=== PATIENT | female | born 1960 | race Caucasian/White ===

== ENCOUNTER 2020-05-06 22:01 | Inpatient (IN) | payer MEDICARE, MEDICAID ==
[~2020-05-06] VITALS: Ht 160 cm; Wt 108.0 kg
[~2020-05-06 22:01] MED LIST: HYDR-2595; IBU800T
[2020-05-06] MEDS ORDERED: CEFTRIAXONE SODIUM 2 GM in D5W 5% 50 ML IV ONE (23:30)
[2020-05-06] MEDS ORDERED: ALBUTEROL SULF 2.5 MG/0.5ML(0.5%) NEB SOLN NEB PRN (23:30)
[2020-05-06] MEDS ORDERED: MORPHINE SULFATE INJECTION 2 MG/ML SYRG IV PRN (23:30)
[2020-05-06] MEDS ORDERED: NITROGLYCERIN 0.4 MG SL TAB SL PRN ×2 (23:30)
[2020-05-07 00:10] LABS: Basophils # (auto) 0.1 10 ^3/uL (0-0.2); Basophils % (auto) 0.8 % (0.0-2.0); Eosinophils # (auto) 0.3 10 ^3/uL (0-0.8); Eosinophils % (auto) 3.6 % (0.0-7.0); Hematocrit 43.3 % (36.0-46.0); Hemoglobin 14.7 g/dL (12.2-16.2); Lymphocytes # (auto) 2.3 10 ^3/uL (0.4-5.4); Mean Corpuscular Hemoglobin 31.7 pg (28.0-32.0); Mean Corpuscular Volume 93.1 fL (80.0-100.0); Monocytes # (auto) 0.7 10 ^3/uL (0-1.3); Monocytes % (auto) 7.9 % (0.0-12.0); Neutrophils # (auto) 5.4 10 ^3/uL (1.6-8.6); Neutrophils % (auto) 61.7 % (37.0-80.0); Nucleated Red Blood Cells % 0.1 %; Red Blood Cells 4.65 10^6/uL (4.0-5.20); Red Cell Distribution Width 14.1 % (11.8-14.3); White Blood Cell 8.8 10^3/uL (4.4-10.8)
[2020-05-07] MEDS ORDERED: cefTRIAXone SOD 1,000 MG VL ONE (00:17)
[2020-05-07 00:27] LABS: Calcium 9.2 mg/dL (8.5-10.1)
[2020-05-07 01:03] LABS: INR 0.9 (0.9-1.15); Partial Thromboplastin Time 24.5 sec (23.0-31.2)
[2020-05-07] MEDS ORDERED: CLINDAMYCIN 900MG IV 50 ML IV ONE (02:00)
[2020-05-07] MEDS: MORPHINE SULFATE INJECTION 2 MG/ML SYRG IV PRN ×2 (02:26→03:10)
[2020-05-07 07:13] LABS: Basophils # (auto) 0.1 10 ^3/uL (0-0.2); Basophils % (auto) 0.8 % (0.0-2.0); Eosinophils # (auto) 0.2 10 ^3/uL (0-0.8); Eosinophils % (auto) 2.8 % (0.0-7.0); Hematocrit 43.1 % (36.0-46.0); Hemoglobin 14.8 g/dL (12.2-16.2); Lymphocytes # (auto) 2.2 10 ^3/uL (0.4-5.4); Lymphocytes % (auto) 28.1 % (10.0-50.0); Mean Corpuscular Hemoglobin 31.8 pg (28.0-32.0); Mean Corpuscular Hgb Conc. 34.3 g/dL (32.0-36.0); Mean Corpuscular Volume 92.8 fL (80.0-100.0); Monocytes # (auto) 0.6 10 ^3/uL (0-1.3); Monocytes % (auto) 7.6 % (0.0-12.0); Neutrophils # (auto) 4.7 10 ^3/uL (1.6-8.6); Neutrophils % (auto) 60.7 % (37.0-80.0); Nucleated Red Blood Cells % 0.1 %; Red Blood Cells 4.65 10^6/uL (4.0-5.20); Red Cell Distribution Width 13.8 % (11.8-14.3); White Blood Cell 7.7 10^3/uL (4.4-10.8)
[2020-05-07 07:30] LABS: Potassium 4.1 mmol/L (3.5-5.1)
[2020-05-07 07:43] LABS: Albumin 3.6 g/dL (3.4-5.0); BUN/Creatinine Ratio 23.5; Bilirubin, Total 0.4 mg/dL (0.2-1.0)
[2020-05-07] MEDS ORDERED: IOHEXOL 350 MG/ML 100ML IJ ONE (08:17)
[2020-05-07] MEDS ORDERED: FUROSEMIDE 20 MG/2 ML VIAL IV ONE (09:00)
[2020-05-07 09:15] VITALS: BP 111/72
[2020-05-07] MEDS: KETOROLAC TROMETH 30 MG/ML 1ML VIAL IV SCH ×2 (09:23→16:15)
[2020-05-07] MEDS: ENOXAPARIN SOD 40 MG/0.4 ML SYRINGE SC SCH ×2 (09:23)
[2020-05-07] MEDS: cefTRIAXone 1GM/50ML D5W 50 ML IV SCH (09:23)
[2020-05-07] MEDS ORDERED: PANTOPRAZOLE 40 MG TAB PO SCH (10:00)
[2020-05-07] MEDS ORDERED: HYDROmorphone HCL 2 MG/ML VL IV PRN (20:00)
[2020-05-07] MEDS: PANTOPRAZOLE 40 MG TAB PO SCH (20:34)
[2020-05-07] MEDS: HYDROmorphone HCL 2 MG/ML VL IV PRN (20:36)
[2020-05-07 22:06] VITALS: BP 103/57
[2020-05-08] MEDS: HYDROmorphone HCL 2 MG/ML VL IV PRN ×2 (02:21→08:43)
[2020-05-08 04:47] VITALS: BP 113/63
[2020-05-08 08:00] VITALS: BP 103/63
[2020-05-08] MEDS ORDERED: LIDOCAINE VISCOUS 2% 15ML UD ONE (08:42)
[2020-05-08] MEDS ORDERED: diphenhdrAMINE HCL 50 MG/1 ML VL ONE (08:42)
[2020-05-08] MEDS ORDERED: SODIUM CHLORIDE LOCK 10 ML ONE (08:42)
[2020-05-08] MEDS ORDERED: fentaNYL CITRATE 100 MCG/2 ML VL ONE (08:43)
[2020-05-08 09:00] VITALS: BP 103/63
[2020-05-08] MEDS: PANTOPRAZOLE 40 MG TAB PO SCH (09:03)
[2020-05-08] MEDS: ENOXAPARIN SOD 40 MG/0.4 ML SYRINGE SC SCH (09:05)
[2020-05-08] MEDS: MIDAZOLAM HCL 5 MG/ML-1ML VIAL ONE ×2 (09:08→09:11)
[2020-05-08] MEDS: cefTRIAXone 1GM/50ML D5W 50 ML IV SCH (10:28)
[2020-05-08 13:00] VITALS: BP 139/66
[2020-05-08] MEDS ORDERED: LORazepam 2MG/ML-1ML VIAL IV ONE (14:45)
== END 2020-05-08 16:15 | disposition left against medical advice (07) | DRG 89 ==
LOC: ER 22:03 → TELE 22:04 → TELE-E-ADS 05-07 14:33 → TELE-WESTW 05-08 14:51
PROVIDERS: ADMIT Specialist; ATTEND Specialist
PROC: 0DB68ZX Excision of Stomach, Via Natural or Artificial Opening Endoscopic, Diagnostic (ICD-10-PCS; principal; 2020-05-08 09:08)
DX: S06.0X0A Concussion without loss of consciousness, initial encounter (principal); J44.1 Chronic obstructive pulmonary disease with (acute) exacerbation; K92.1 Melena; L03.116 Cellulitis of left lower limb; L03.115 Cellulitis of right lower limb; E66.2 Morbid (severe) obesity with alveolar hypoventilation; J45.901 Unspecified asthma with (acute) exacerbation; Z68.41 Body mass index [BMI] 40.0-44.9, adult; G90.521 Complex regional pain syndrome I of right lower limb; K29.80 Duodenitis without bleeding; K29.70 Gastritis, unspecified, without bleeding; E86.1 Hypovolemia; S83.92XA Sprain of unspecified site of left knee, initial encounter; S83.91XA Sprain of unspecified site of right knee, initial encounter; S00.91XA Abrasion of unspecified part of head, initial encounter; F41.9 Anxiety disorder, unspecified; F17.210 Nicotine dependence, cigarettes, uncomplicated; I10 Essential (primary) hypertension; K04.7 Periapical abscess without sinus; Z20.822 Contact with and (suspected) exposure to COVID-19; M16.0 Bilateral primary osteoarthritis of hip; M17.0 Bilateral primary osteoarthritis of knee; M21.371 Foot drop, right foot; M47.817 Spondylosis without myelopathy or radiculopathy, lumbosacral region; I27.81 Cor pulmonale (chronic); R29.6 Repeated falls; F32.9 Major depressive disorder, single episode, unspecified; K21.9 Gastro-esophageal reflux disease without esophagitis; M48.061 Spinal stenosis, lumbar region without neurogenic claudication; S50.311A Abrasion of right elbow, initial encounter; Y93.01 Activity, walking, marching and hiking; W22.8XXA Striking against or struck by other objects, initial encounter; S50.312A Abrasion of left elbow, initial encounter; Z53.29 Procedure and treatment not carried out because of patient's decision for other reasons; Z86.73 Personal history of transient ischemic attack (TIA), and cerebral infarction without residual deficits; Z91.19 Patient's noncompliance with other medical treatment and regimen; Z82.49 Family history of ischemic heart disease and other diseases of the circulatory system; Y92.524 Gas station as the place of occurrence of the external cause; Y99.8 Other external cause status
CPT/HCPCS: 36415; 43239; 70450; 70486; 71045; 71275; 72125; 73562; 80048; 80053; 80061; 83036; 83880; 85025; 85379; 85610; 85730; 93005; 93306; 93886; 93925; 93970; 96365; 96367; 96375; G0378; J0696; J1885; J2250; J3490; J7060